=== PATIENT | female | born 1990 | race American Indian/Alaskan Native ===

== ENCOUNTER 2019-04-16 09:35 | Emergency (ER) | payer SELFPAY ==
[2019-04-16 13:17] VITALS: BP 126/65
--- NOTE | 2019-04-16 13:25 | Emergency Department Report ---
ED General Adult HPI - General Chief complaint: Upper Respiratory Infection Stated complaint: FEVER/COUGH/THROAT PAIN Time Seen by Provider: 04/16/19 13:03 Source: patient Mode of arrival: Ambulatory Limitations: No Limitations - History of Present Illness Initial comments: As a 28-year-old female with no known past medical history. She complains of URI/flu types symptoms. She states that she is been coughing with minimal brownish sputum. She has some chest soreness only on cough. She is not coughing at this time. She does not complain of any independent chest discomfort nor any pleuritic pain. She's had a sore throat sneezing and flulike symptoms. She denies recent travel or leg pain or swelling. Patient states that she hasn't been to a doctor in some time. She does not have a history of hypertension or diabetes. She was found to have elevated blood pressure readings on triage. An Accu-Chek is pending. -: Gradual, days(s) Location: chest (mild on COUGH ONLY) Consistency: now resolved Improves with: none Worsens with: none Associated Symptoms: denies other symptoms, fever/chills (states fever yesterday no chills), other (URI type symptoms as above) Treatments Prior to Arrival: none - Related Data Previous Rx's Medication Instructions Recorded Last Taken Type Azithromycin [Zithromax Z-LOKESH] 250 mg PO DAILY #1 pkg 04/16/19 Unknown Rx Allergies Allergy/AdvReac Type Severity Reaction Status Date / Time No Known Allergies Allergy Unverified 04/16/19 09:39 ED Review of Systems ROS: Stated complaint: FEVER/COUGH/THROAT PAIN Other details as noted in HPI Constitutional: denies: chills, fever Eyes: denies: eye pain, eye discharge, vision change ENT: as per HPI. denies: ear pain, throat pain Respiratory: cough. denies: shortness of breath, wheezing Cardiovascular: as per HPI. denies: palpitations Endocrine: no symptoms reported Gastrointestinal: denies: abdominal pain, nausea, diarrhea Genitourinary: denies: urgency, dysuria, discharge Musculoskeletal: denies: back pain, joint swelling, arthralgia Skin: denies: rash, lesions Neurological: denies: headache, weakness, paresthesias Psychiatric: denies: anxiety, depression Hematological/Lymphatic: denies: easy bleeding, easy bruising ED Past Medical Hx - Past Medical History Previous Medical History?: No - Surgical History Past Surgical History?: No - Social History Smoking Status: Never Smoker Substance Use Type: Alcohol - Medications Home Medications: Home Medications Medication Instructions Recorded Confirmed Last Taken Type Azithromycin [Zithromax Z-LOKESH] 250 mg PO DAILY #1 hemalg 04/16/19 Unknown Rx ED Physical Exam - General Limitations: No Limitations General appearance: alert, in no apparent distress - Head Head exam: Present: atraumatic, normocephalic - Eye Eye exam: Present: normal appearance, PERRL, EOMI. Absent: scleral icterus - ENT ENT exam: Present: mucous membranes moist - Neck Neck exam: Present: normal inspection. Absent: tenderness, meningismus - Respiratory Respiratory exam: Present: normal lung sounds bilaterally. Absent: respiratory distress - Cardiovascular Cardiovascular Exam: Present: regular rate, normal rhythm. Absent: systolic murmur, diastolic murmur, rubs, gallop - GI/Abdominal GI/Abdominal exam: Present: soft, normal bowel sounds. Absent: distended, tenderness, guarding, rebound, rigid - Extremities Exam Extremities exam: Present: normal inspection - Back Exam Back exam: Present: normal inspection - Neurological Exam Neurological exam: Present: alert, oriented X3, CN II-XII intact. Absent: motor sensory deficit - Psychiatric Psychiatric exam: Present: normal affect, normal mood - Skin Skin exam: Present: warm, dry, intact, normal color. Absent: rash ED Course Vital Signs 04/16/19 04/16/19 04/16/19 09:39 09:49 13:14 Temperature 98.2 F Pulse Rate 101 H 97 H Respiratory 18 16 Rate Blood Pressure 151/86 126/65 Blood Pressure 149/119 [Right] O2 Sat by Pulse 98 98 Oximetry - Reevaluation(s) Reevaluation #1: Blood pressure upon repeat was normal range. Accu-Chek was 82. Patient is appropriate for outpatient follow-up and management. 04/16/19 13:36 Critical care attestation.: If time is entered above; I have spent that time in minutes in the direct care of this critically ill patient, excluding procedure time. ED Disposition Clinical Impression: Viral respiratory illness Disposition: DC-01 TO HOME OR SELFCARE Is pt being admited?: No Does the pt Need Aspirin: No Condition: Stable Instructions: Viral Syndrome (ED) Additional Instructions: I'm going to give you a prescription for an antibiotic. I don't recommended at this point. However if you start producing more phlegm it would be appropriate. Rest and follow-up with a primary care provider. See referral. Prescriptions: Azithromycin [Zithromax Z-LOKESH] 250 mg PO DAILY #1 pkg Referrals: PRIMARY CARE, [Primary Care Provider] - 3-5 Days [facility] [Provider Group] - 3-5 Days Time of Disposition: 13:37
== END 2019-04-16 13:49 | disposition home or self-care (01) ==
LOC: ED 09:35
DX: B34.9 Viral infection, unspecified (principal)
CPT/HCPCS: 82962; 99282